=== PATIENT | female | born 1975 | race Caucasian/White ===

== ENCOUNTER 2016-03-11 14:36 | Observation (INO) | payer OTHER ==
[2016-03-11] VITALS (7 sets, daily range): BP systolic 103–155; BP diastolic 65–81; PULSE 72–91; TEMP 36.3–36.7; O2SAT 94–99; Ht 170.2 cm; Wt 85.7 kg
[~2016-03-11] VITALS: Ht 170.2 cm; Wt 85.7 kg
[~2016-03-11 14:36] MED LIST: BSP15 PO; CITA10TA8 PO; HYDR-5688 PO; MYCO250C7 PO; SUMA6KIT SC; TOPI25TA55 PO
[2016-03-11] MEDS ORDERED: MIDAZOLAM HCL 1 MG/ML 2ML VIAL ONE (14:56)
[2016-03-11] MEDS ORDERED: PROPOFOL IV EMULSION 10 MG/ML 20 ML VIAL IV ONE ×2 (14:56→18:01)
[2016-03-11] MEDS ORDERED: FENTANYL CITRATE INJ 50 MCG/1 ML 2 ML VIAL ONE ×3 (14:56→18:39)
[2016-03-11] MEDS ORDERED: LIDOCAINE HCL 2% 2 ML VIAL (20MG/ML) ONE (14:56)
[2016-03-11] MEDS ORDERED: ONDANSETRON INJ 2 MG/ML 2 ML VIAL ONE (14:56)
[2016-03-11] MEDS ORDERED: ACET-1256 PO (14:57)
[2016-03-11] MEDS ORDERED: IBUP-1050 PO (14:57)
[2016-03-11] MEDS ORDERED: LACTATED RINGER'S 1000ML 1,000 ML IV SCH (15:03)
--- NOTE | 2016-03-11 15:07 | History & Physical Bridge Note ---
H&P Re-Evaluation Bridge Note: I have examined the patient, reviewed the History & Physical and in the interval since the performance of the History & Physical I have noted the following changes of clinical significance: plan for removal of her left tube and ovary.
[2016-03-11 15:30] LABS: BASO % 0.5 %; BASO ABS # 0.03 K/uL (0-0.2); EOS % 1.3 %; HEMATOCRIT 37.4 % (37-47); IG% 0.2 %; LYMPH % 20.2 %; LYMPH ABS # 1.23 K/uL (1.2-3.4); MEAN CELL VOLUME 90.1 fL (80-100); MEAN CORPUSCULAR HEMOGLOBIN 30.4 pg (25-34); MEAN PLATELET VOLUME 10.1 fL (7.4-10.4); MONO % 7.1 %; NEUT % 70.7 %; PLATELET COUNT 190 K/uL (130-400); RED BLOOD COUNT 4.15 M/uL (4.2-5.4); WHITE BLOOD COUNT 6.08 K/uL (4.8-10.8)
[2016-03-11] MEDS ORDERED: IV FLUIDS COMPLETED PRN ×2 (15:30→20:15)
[2016-03-11 15:38] LABS: COMPLETE YES; MEAN CORPUSCULAR HGB CONC 33.7 g/dl (32-36)
[2016-03-11] MEDS ORDERED: SUCCINYLCHOLINE CHLORIDE 20 MG/ML 10 ML VIAL IV ONE (18:01)
[2016-03-11] MEDS ORDERED: PHENYLEPHRINE 100MCG/ML 5ML SYR IV PRN (18:45)
[2016-03-11] MEDS ORDERED: EpHEDrine SULFATE INJ 50 MG/ML AMP IV PRN (18:45)
[2016-03-11] MEDS ORDERED: ATROPINE SULFATE 0.1 MG/ML 5ML SYR IV PRN (18:45)
[2016-03-11] MEDS ORDERED: ONDANSETRON INJ 2 MG/ML 2 ML VIAL IV PRN ×2 (18:45→19:45)
[2016-03-11] MEDS ORDERED: BUPIVACAINE 0.5 % 5 MG/1 ML MPF 30ML VIAL INJ ONE (19:21)
[2016-03-11] MEDS ORDERED: GELATIN SPONGE 12-7MM TOP ONE (19:22)
[2016-03-11] MEDS: HYDROmorphone INJ 2 MG/ML SYR/VIAL IV PRN ×4 (19:36→19:58)
[2016-03-11] MEDS ORDERED: MEPERIDINE HCL 25 MG/ML CARP ONE (19:37)
[2016-03-11] MEDS ORDERED: NURSING VERBAL MED ORDER ONE (19:37)
--- NOTE | 2016-03-11 19:40 | [facility] Post Operative Brief Note ---
Immediate Operative Summary Operative Date Mar 11, 2016. Pre-Operative Diagnosis Left ovarian mass, suspected torsion of the left ovary. Post-Operative Diagnosis Same Procedure(s) Performed Diagnostic Laparoscopy, Exploratory laparotomy and Left salpingo-oophorectomy Surgeon Dr Davis Aircraft Layout Worker Surgeon(s) Dr. Ramirez Estimated Blood Loss 25cc Findings right tube and ovary normal. utx surgically absent. left ovary enlarged and appeared necrotic. it was encased on bowel and adhesed to the left side of the vaginal cuff and the left pelvic sidewall. appendix visualized and normal. Fluids (cc crystalloids) 1000cc, 200 cc urine out Specimens a. left ovary and tube Drains jean baptiste Anesthesia gett Complication(s) None Disposition Recovery Room / PACU
[2016-03-11] MEDS ORDERED: MEPERIDINE HCL 50 MG/ML CARP IV PRN (19:45)
[2016-03-11] MEDS ORDERED: ACETAMINOPHEN 325 MG TAB PO PRN (19:45)
[2016-03-11] MEDS ORDERED: KETOROLAC TROMETHAMINE 30 MG/ML VIAL IV PRN (19:45)
[2016-03-11] MEDS ORDERED: KETOROLAC TROMETHAMINE 30 MG/ML VIAL ONE (20:00)
[2016-03-11] MEDS ORDERED: CEFAZOLIN 2000 MG/60 ML D5W 60 ML IV ONE (20:45)
[2016-03-11] MEDS: OXYCODONE/ACETAMINOPHEN 5-325 TAB PO PRN (22:40)
[2016-03-11] MEDS: IBUPROFEN 600 MG TAB PO PRN (22:40)
[2016-03-11] MEDS: LACTATED RINGER'S 1000ML 1,000 ML IV SCH (22:42)
--- NOTE | 2016-03-12 00:40 | OPERATIVE REPORT ---
DATE OF OPERATION: 03/11/2016 PREOPERATIVE DIAGNOSIS: Left ovarian mass with suspected torsion of the left ovary. POSTOPERATIVE DIAGNOSIS: Same with adhesions of the left adnexa to the large bowel and left pelvic sidewall. PROCEDURE PERFORMED: 1. Diagnostic laparoscopy. 2. Conversion to exploratory laparotomy. 3. Left salpingo-oophorectomy. SURGEON: Dr. Davis. ASSIST: Dr. Ramirez. ESTIMATED BLOOD LOSS: 25 mL FLUIDS: 1000 mL of IV fluids. URINE OUTPUT: 200 mL of clear yellow urine draining from the bladder at the end of the procedure. INDICATIONS: The patient is a 40-year-old white female with a history of total laparoscopic hysterectomy about 2 years ago. About 2 weeks ago, she was in the Emergency Department with pain, was found to have a hemorrhagic [address] scan, was evaluated, treated, improved with oral pain meds. She presented to the office yesterday for an ultrasound noting that her pain had not completely resolved and in fact it had been getting worse over the past 24 hours or so. Ultrasound at that time showed right ovarian mass that was 6 cm, there was essentially no ovarian tissue left. There was arterial blood flow to the ovary but no venous return. It was suspected that there was ovarian torsion and she was sent to the operating room. FINDINGS: Right tube and ovary were normal. The uterus was surgically absent. The left ovary was enlarged, approximately 5-6 cm and appeared necrotic. It was encased in bowel and adhesed to the left side of the vaginal cuff and the left pelvic sidewall. The appendix was visualized and found to be normal. COMPLICATIONS: None. DRAINS: Terry. DISPOSITION: To recovery room in stable condition. ANESTHESIA: General per endotracheal tube. PROCEDURE IN DETAIL: The patient was taken to the operating room where she was identified verbally and by bracelet. She was transferred to the operating table where general anesthetic was induced without difficulty. She was then placed in a dorsal lithotomy position in [facility]. Her hands were carefully tucked and draped at her side. Her chest was tucked and protected. She was prepped and draped in normal sterile fashion. Timeout was held identifying correct patient, procedure and positioning. A Terry catheter was placed sterilely and a sterile sponge stick was placed into the vaginal cuff. Gloves were then changed. Attention was then turned to the abdomen where an infraumbilical incision was made with a knife. The Veress needle was placed through this, opening pressure 3 mmHg. Abdomen insufflated with 3 liters of carbon dioxide gas. 11 mm trocar with the laparoscope in it was introduced into the abdomen under direct visualization. Then, under direct visualization, a 5 mm trocar was placed in the right and left lower quadrants. The right ovary was evaluated and found to be normal. The tube had likely been previously removed with the laparoscopy. The left ovary was enlarged and appeared necrotic. It was encased in large bowel and was adherent to the vaginal cuff to the left pelvic sidewall. I was able to gently tease off some of the bowel gently with a blunt probe, but given these findings, my problems with visualization, I decided to open the patient. The trocars were removed, a deep stitch was placed of 0 Vicryl in the 11 mm trocar umbilical site, and the incisions were closed with 4-0 Vicryl in a subcuticular fashion. Attention was then turned and a Pfannenstiel skin incision was made with the knife, this was taken down to the underlying layer of fascia with the knife and Bovie electrocautery. Bleeding was attended to with Bovie electrocautery. The fascia was incised with cautery and taken out laterally with scissors. The superior edge of the fascial incision was grasped, elevated, and the underlying layer of rectus muscle was taken off bluntly and with scissors, bleeding was attended to with Bovie electrocautery. In a similar fashion, the inferior edge of the fascial incision was grasped, elevated, and the underlying layer of rectus muscle was taken off bluntly and with scissors. The muscles were bluntly and sharply in the midline. The peritoneum was entered bluntly, taken superiorly and inferiorly, and the incision was stretched. The patient was placed in Trendelenburg and the bowels were packed away with moist and laparotomy sponges. When we were able to visualize the ovary, the booster pump operator's hand was placed into the pelvis, and gently with blunt dissection, the ovary was able to be removed from the bowel, the vaginal cuff and the pelvic sidewall. It was grasped with a Sandstone clamp and essentially disintegrated in our hands. We were left with basically an ovarian stump to the IP ligament. The IP ligament was found to likely be free from the ureter and it was doubly clamped, cut, and suture ligated x2. The pelvis was then copiously irrigated with warm normal saline. There was some oozing at the site of the cuff and the left pelvic sidewall, and some Gelfoam was placed over this. Hemostasis was noted to be good and the procedure was terminated. The bowel was then packed. The patient was taken out of Trendelenburg. The fascia was reapproximated with 0 Vicryl meeting in the midline. Subcuticular tissue was irrigated and attended to with Bovie electrocautery. When hemostasis was assured, the skin was closed with subcuticular stitch of 4-0 Vicryl. The laparoscopic incisions were then infiltrated with 0.5% Marcaine. The instruments were removed from the vagina and the procedure was terminated. All sponge, lap and needle counts were correct x2. The patient tolerated the procedure well and was taken to the recovery room in stable condition. I attest to the content of the Intraoperative Record and any orders documented therein. Any exceptio ns are noted below.
--- NOTE | 2016-03-12 01:28 | Anesthesiology Progress Note ---
Anesthesia Post Op Note Date & Time Mar 12, 2016 at 01:28 Vital Signs Pain Intensity: 5.0 Vital Signs Past 12 Hours Date Time Temp Pulse Resp B/P Pulse Ox O2 Delivery O2 Flow Rate FiO2 03/11/16 23:25 Room Air 03/11/16 23:25 36.7 72 16 110/65 96 Room Air 03/11/16 22:30 36.5 74 18 103/67 97 Room Air 03/11/16 21:30 36.3 75 16 106/68 94 Room Air 03/11/16 21:00 36.4 77 16 107/70 99 Room Air 03/11/16 20:48 36.7 79 16 108/69 99 Nasal Cannula 2.0 03/11/16 20:30 36.7 79 16 108/69 99 Nasal Cannula 2.0 03/11/16 20:30 99 Nasal Cannula 2.0 03/11/16 20:30 99 Nasal Cannula 2.0 03/11/16 20:05 37.4 64 12 123/69 100 Nasal Cannula 2 03/11/16 19:55 71 12 112/75 99 Nasal Cannula 2 03/11/16 19:45 68 14 117/81 100 Nasal Cannula 2 03/11/16 19:36 36.5 88 16 128/76 95 Nasal Cannula 2 03/11/16 14:45 36.5 91 22 155/81 96 Room Air Notes Mental Status: alert / awake / arousable, participated in evaluation Pt Amnestic to Procedure: Yes Nausea / Vomiting: adequately controlled Pain: adequately controlled Airway Patency, RR, SpO2: stable & adequate BP & HR: stable & adequate Hydration State: stable & adequate Anesthetic Complications: no major complications apparent
[2016-03-12 03:17] VITALS: BP 113/75; PULSE 65; TEMP 36.7; O2SAT 99
[2016-03-12] MEDS: LACTATED RINGER'S 1000ML 1,000 ML IV SCH ×2 (03:17→11:21)
[2016-03-12] MEDS: OXYCODONE/ACETAMINOPHEN 5-325 TAB PO PRN ×3 (03:24→14:05)
--- NOTE | 2016-03-12 06:25 | Medical Student: [facility] ---
Med Student ELECTRIC OPERATOR Progress Nt Date of Service Mar 12, 2016. The patient is a 40-year-old white female with a significant PMH of laparoscopic hysterectomy and myasthenia gravis who was sent to [facility] on 03/11/16 for surgery when it was suspected that she had left ovarian torsion. She presented to the ED on 02/15/16 with severe 10/10 pain and nausea/ vomiting, and was determined to have a hemorrhagic cyst. She continued to have pain over the next few weeks and ultrasound on 03/10/16 showed arterial blood flow but no venous flow. In the OR diagnostic laparoscopy revealed that there was extensive adhesion to the vaginal cuff and bowel and so laparotomy was performed to remove the ovary. There were no complications. Blood loss was 25 cc. This morning patient states that she is having pain but it is much less severe than last night after surgery. She did not have any complications or issues with anesthesia. She was able to get some sleep. Terry catheter was removed earlier this morning and patient was able to ambulate and void without issue. She has not had anything to eat except for 'a few cheerios' and has not had a bowel movement, but is passing gas. Patient denies fevers, sweats, chills, palpitations, nausea, vomiting. She denies calf pain or swelling. Subjective conversation w/ patient, physical exam Ambulation: ambulating normally Voiding: no voiding problems Passing Gas: Yes Review of Systems Constitutional: No fever Cardiac: No chest pain Abdomen: + pain, No nausea, No vomiting Female : No dysuria Objective Vital Signs Date Time Temp Pulse Resp B/P Pulse Ox O2 Delivery O2 Flow Rate FiO2 03/12/16 03:17 36.7 65 16 113/75 99 Room Air 03/11/16 23:25 Room Air 03/11/16 23:25 36.7 72 16 110/65 96 Room Air 03/11/16 22:30 36.5 74 18 103/67 97 Room Air 03/11/16 21:30 36.3 75 16 106/68 94 Room Air 03/11/16 21:00 36.4 77 16 107/70 99 Room Air 03/11/16 20:48 36.7 79 16 108/69 99 Nasal Cannula 2.0 03/11/16 20:30 36.7 79 16 108/69 99 Nasal Cannula 2.0 03/11/16 20:30 99 Nasal Cannula 2.0 03/11/16 20:30 99 Nasal Cannula 2.0 03/11/16 20:05 37.4 64 12 123/69 100 Nasal Cannula 2 03/11/16 19:55 71 12 112/75 99 Nasal Cannula 2 03/11/16 19:45 68 14 117/81 100 Nasal Cannula 2 03/11/16 19:36 36.5 88 16 128/76 95 Nasal Cannula 2 03/11/16 14:45 36.5 91 22 155/81 96 Room Air Physical Exam General Appearance: WELL-APPEARING, WD/WN Respiratory/Chest: chest non-tender, lungs clear, normal breath sounds Cardiovascular: regular rate, rhythm Extremities: normal range of motion, non-tender, normal inspection, no pedal edema, no calf tenderness Uterus is surgically absent. Incision sites were not visualized but there is no erythema or swelling around dressings. Laboratory Results Last 24 Hours Test 03/11/16 15:15 03/12/16 04:44 White Blood Count 6.08 K/uL Red Blood Count 4.15 M/uL Hemoglobin 12.6 g/dL Hematocrit 37.4 % Mean Corpuscular Volume 90.1 fL Mean Corpuscular Hemoglobin 30.4 pg Mean Corpuscular Hemoglobin Concent 33.7 g/dl Platelet Count 190 K/uL Mean Platelet Volume 10.1 fL Neutrophils (%) (Auto) 70.7 % Lymphocytes (%) (Auto) 20.2 % Monocytes (%) (Auto) 7.1 % Eosinophils (%) (Auto) 1.3 % Basophils (%) (Auto) 0.5 % Neutrophils # (Auto) 4.30 K/uL Lymphocytes # (Auto) 1.23 K/uL Monocytes # (Auto) 0.43 K/uL Eosinophils # (Auto) 0.08 K/uL Basophils # (Auto) 0.03 K/uL RDW Standard Deviation 41.7 fL RDW Coefficient of Variation 12.8 % Immature Granulocyte % (Auto) 0.2 % Immature Granulocyte # (Auto) 0.01 K/uL Medications Medications (Trade) Dose Ordered Sig/Bert Route Start Time Stop Time Status Last Admin Dose Admin Lactated Ringer's (Lr 1000ml) 1,000 ml @ 125 mls/hr Q8H IV 03/11/16 15:03 03/11/16 22:24 DC 03/11/16 21:33 125 MLS/HR Hydromorphone HCl (Dilaudid Inj) 0.5 mg Q5M PRN IV 03/11/16 18:45 03/11/16 23:45 DC 03/11/16 19:58 0.5 MG Bupivacaine HCl (Marcaine 0.5% MPF Inj) 6 ml ONE ONCE INJ 03/11/16 19:21 03/11/16 19:22 DC 03/11/16 19:21 6 ML Gelatin (Surgifoam Sponge 12-7MM (SMALL)) 1 ea ONE ONCE TOP 03/11/16 19:22 03/11/16 19:23 DC 03/11/16 19:22 1 EA Meperidine HCl 25 mg 25 mg STK-MED ONCE .ROUTE 03/11/16 19:37 03/11/16 19:38 DC 03/11/16 19:39 25 MG Lactated Ringer's (Lr 1000ml) 1,000 ml @ 125 mls/hr Q8H IV 03/11/16 19:40 04/10/16 19:39 03/12/16 03:17 125 MLS/HR Oxycodone/ Acetaminophen (Percocet 5-325MG Tab) 2 tab Q4H PRN PO 03/11/16 19:45 03/25/16 19:44 03/12/16 03:24 2 TAB Ibuprofen (Motrin Tab) 600 mg Q6 PRN PO 03/11/16 19:45 04/10/16 19:44 03/11/16 22:40 600 MG Ketorolac Tromethamine 30 mg 30 mg STK-MED ONCE .ROUTE 03/11/16 20:00 03/11/16 20:01 DC 03/11/16 20:01 30 MG Cefazolin Sodium (Ancef 2000mg/60 ml D5W) 60 ml @ 100 mls/hr TODAY@2044 ONCE IV 03/11/16 20:45 03/11/16 21:29 DC 03/11/16 21:33 100 MLS/HR Assessment and Plan Post-Op Day Number: 1 Continue Routine Care: The patient is a 40-year-old white female with a significant PMH of laparoscopic hysterectomy and myasthenia gravis who underwent surgery on 03/11/16 at [facility] for left ovarian torsion. Continue routine care. Encourage ambulation as she is at risk of VTE post-op. Encourage fluids. Pain management as needed.
[2016-03-12 07:15] VITALS: BP 113/73; PULSE 64; TEMP 36.7; O2SAT 99
--- NOTE | 2016-03-12 07:36 | OB/GYN Progress Note ---
AIR MOVING TECHNICIAN Progress Note Date of Service Mar 12, 2016. Subjective conversation w/ patient, physical exam, lab review Ambulation: ambulating normally Voiding: no voiding problems (jean baptiste recently removed and has voided.) Passing Gas: Yes Diet Tolerance: Clear Liquids Pain: controlled with oral pain meds Notes: Did well overnight. no n/v. Pain better controlled. Explained the surgery and findings to the patient. Objective Vital Signs Date Time Temp Pulse Resp B/P Pulse Ox O2 Delivery O2 Flow Rate FiO2 03/12/16 07:15 36.7 64 16 113/73 99 Room Air 03/12/16 03:17 36.7 65 16 113/75 99 Room Air 03/11/16 23:25 Room Air 03/11/16 23:25 36.7 72 16 110/65 96 Room Air 03/11/16 22:30 36.5 74 18 103/67 97 Room Air 03/11/16 21:30 36.3 75 16 106/68 94 Room Air 03/11/16 21:00 36.4 77 16 107/70 99 Room Air 03/11/16 20:48 36.7 79 16 108/69 99 Nasal Cannula 2.0 03/11/16 20:30 36.7 79 16 108/69 99 Nasal Cannula 2.0 03/11/16 20:30 99 Nasal Cannula 2.0 03/11/16 20:30 99 Nasal Cannula 2.0 03/11/16 20:05 37.4 64 12 123/69 100 Nasal Cannula 2 03/11/16 19:55 71 12 112/75 99 Nasal Cannula 2 03/11/16 19:45 68 14 117/81 100 Nasal Cannula 2 03/11/16 19:36 36.5 88 16 128/76 95 Nasal Cannula 2 03/11/16 14:45 36.5 91 22 155/81 96 Room Air Physical Exam General Appearance: WELL-APPEARING, WD/WN, NO APPARENT DISTRESS Abdomen: normal bowel sounds, non tender, soft Incision Description: Clean, Dry & Intact Extremities: non-tender, normal inspection, no pedal edema Laboratory Results Last 24 Hours Test 03/11/16 15:15 03/12/16 04:44 White Blood Count 6.08 K/uL Red Blood Count 4.15 M/uL Hemoglobin 12.6 g/dL Hematocrit 37.4 % Mean Corpuscular Volume 90.1 fL Mean Corpuscular Hemoglobin 30.4 pg Mean Corpuscular Hemoglobin Concent 33.7 g/dl Platelet Count 190 K/uL Mean Platelet Volume 10.1 fL Neutrophils (%) (Auto) 70.7 % Lymphocytes (%) (Auto) 20.2 % Monocytes (%) (Auto) 7.1 % Eosinophils (%) (Auto) 1.3 % Basophils (%) (Auto) 0.5 % Neutrophils # (Auto) 4.30 K/uL Lymphocytes # (Auto) 1.23 K/uL Monocytes # (Auto) 0.43 K/uL Eosinophils # (Auto) 0.08 K/uL Basophils # (Auto) 0.03 K/uL RDW Standard Deviation 41.7 fL RDW Coefficient of Variation 12.8 % Immature Granulocyte % (Auto) 0.2 % Immature Granulocyte # (Auto) 0.01 K/uL Assessment and Plan Post-Op Day Number: 1 Continue Routine Care: Doing well. Plan d/c after lunch today when criteria met. d/c instructions reviewed.
[2016-03-12] MEDS ORDERED: OXYC-57 PO (07:37)
--- NOTE | 2016-03-12 07:40 | Discharge Instructions ---
Discharge Instructions Admission Reason for Admission: Torsion Left Ovary Discharge Discharge Diagnosis / Problem: exploratory laparotomy with removal of left tube and ovary. Discharge Goals Goal(s): Specific Goal(s) Activity Recommendations Activity Limitations: per Instructions/Follow-up section . Instructions / Follow-Up Instructions / Follow-Up ACTIVITY RECOMMENDATIONS: Activity: * During the first week at home, your activity should be similar to that done at the hospital prior to discharge. Your primary activity is in-house walking interspersed with rest periods. Preparing lunch for yourself is acceptable. You may go up and down stairs. Try to stay up progressively longer periods of time to help regain your strength more quickly. * During the second week at home, activities should include some meal preparation, walking to strengthen abdominal muscles and riding in a car. You may drive a car and make brief shopping trips at the end of the second week at home. * Lifting should not exceed 15-20 pounds during the first month after surgery. * Sexual intercourse can usually be resumed about 6 weeks after surgery depending on findings at your post-operative examinations. Bathing: * Showers or baths are permissible. Sitting in four to six inches of hot water (sitz bath) is often comforting after vaginal surgery and is permitted at any time. A sitz bath at bedtime can also assist in a better night's sleep. SPECIAL CARE INSTRUCTIONS: The major discomforts related to surgery have now passed and progressive improvement will occur. The tight uncomfortable feeling in the abdominal, pelvic and back area will gradually fade away. Fatigue may take the longest to disappear; your energy level may take several weeks to return to normal. At times you may become frustrated or impatient over not feeling as well or doing as much as you'd like , but this is a normal reaction to surgery and will pass with time. Vaginal Discharge: * Odorous, blood-tinged or brownish discharge may be present for one to three weeks after surgery. * Pads should be used and not tampons. * Stitches may be passed vaginally. * Bleeding may be somewhat increased approximately two weeks after surgery, which is related to the stitches dissolving. * If bleeding becomes free flowing, notify our office at . Bowel Care: * Constipation after surgery is very common. Foods that promote bowel activity (bran, fruit, prune juice) should be included in your diet. * A capsule, DIALOSE-PLUS, can be purchased without a prescription and can be taken daily (one or two capsules) to assist in promoting bowel activity. * If you have had vaginal surgery involving your rectum, we will discuss this when discharged from the hospital. Catheter or "CYSTO-CATH": * Approximately 80% of "bladder repair" patients will require a catheter at home until the swelling recedes. * Some patients require days to weeks before adequate bladder emptying will resume. * In general, after each time you urinate, un-clamp the catheter again. Measure the amount in the bag. When this is consistently below 100cc, call the office to make an appointment to have the catheter removed. Temperature: * Any fever above 100.4 degrees F should be reported to our office at [phone]. FOLLOW-UP: Post-Operative Appointments: * Individual instructions will have been given about the timing of your first examination, but this is usually at the end of the second week home. * You will need to call the office at soon after discharge to make the appointment for your post-op check-up if it has not already been scheduled-- in 4 weeks. * Additional information regarding activity, sexual intercourse and when to return to work will be given at this appointment. WE WISH YOU A SPEEDY RECOVERY! Current Hospital Diet Patient's current hospital diet: Regular Diet Discharge Diet Recommended Diet: Regular Diet Procedures Procedures Performed: Diagnostic Laparoscopy, Exploratory Laparotomy, Open Left Salpingo-Oophorectomy Pending Studies Studies pending at discharge: no Medical Emergencies . Who to Call and When: Medical Emergencies: If at any time you feel your situation is an emergency, please call 911 immediately. . Non-Emergent Contact Non-Emergency issues call your: [place] Line Attendant . . "Provider Documentation" section prepared by Elizabeth Davis. VTE Core Measure Inpt VTE Proph given/why not?: Treatment not indicated [place] Drug Monitoring Program Search Results: patient reviewed within database
[2016-03-12] MEDS: IBUPROFEN 600 MG TAB PO PRN ×2 (08:10→14:04)
[2016-03-12 08:41] LABS: BASO % 0.3 %; BASO ABS # 0.02 K/uL (0-0.2); COMPLETE YES; EOS % 0.6 %; HEMATOCRIT 33.9 % (37-47); IG% 0.1 %; LYMPH % 13.5 %; LYMPH ABS # 1.05 K/uL (1.2-3.4); MEAN CELL VOLUME 90.4 fL (80-100); MEAN CORPUSCULAR HEMOGLOBIN 30.4 pg (25-34); MEAN CORPUSCULAR HGB CONC 33.6 g/dl (32-36); MEAN PLATELET VOLUME 9.9 fL (7.4-10.4); MONO % 6.2 %; NEUT % 79.3 %; PLATELET COUNT 155 K/uL (130-400); RED BLOOD COUNT 3.75 M/uL (4.2-5.4); WHITE BLOOD COUNT 7.76 K/uL (4.8-10.8)
--- NOTE | 2016-03-12 08:42 | Anesthesiology Progress Note ---
Anesthesia Post Op Note Date & Time Mar 12, 2016 at 08:41 Vital Signs Vital Signs Past 12 Hours Date Time Temp Pulse Resp B/P Pulse Ox O2 Delivery O2 Flow Rate FiO2 03/12/16 07:15 36.7 64 16 113/73 99 Room Air 03/12/16 03:17 36.7 65 16 113/75 99 Room Air 03/11/16 23:25 Room Air 03/11/16 23:25 36.7 72 16 110/65 96 Room Air 03/11/16 22:30 36.5 74 18 103/67 97 Room Air 03/11/16 21:30 36.3 75 16 106/68 94 Room Air 03/11/16 21:00 36.4 77 16 107/70 99 Room Air 03/11/16 20:48 36.7 79 16 108/69 99 Nasal Cannula 2.0 Notes Mental Status: alert / awake / arousable, participated in evaluation Pt Amnestic to Procedure: Yes Nausea / Vomiting: adequately controlled Pain: adequately controlled Airway Patency, RR, SpO2: stable & adequate BP & HR: stable & adequate Hydration State: stable & adequate Anesthetic Complications: no major complications apparent
[2016-03-12] MEDS ORDERED: CITALOPRAM 20 MG TAB PO SCH (09:00)
[2016-03-12] MEDS ORDERED: TOPIRAMATE 25 MG TAB PO SCH (09:00)
[2016-03-12] MEDS ORDERED: MYCOPHENOLATE MOFETIL 250 MG CAP (CELLCEPT) PO SCH (09:00)
[2016-03-12] MEDS ORDERED: SUMATRIPTAN SUCCINATE 6 MG/0.5 ML VIAL SQ PRN (15:15)
[2016-03-12 15:30] VITALS: O2SAT 96
[2016-03-12 15:37] VITALS: BP 126/76; PULSE 66; TEMP 36.7; O2SAT 96
[2016-03-12 16:25] VITALS: BP 126/76; PULSE 66; TEMP 36.7; O2SAT 96
--- NOTE | 2016-03-18 15:52 | DISCHARGE SUMMARY ---
ADMIT DIAGNOSES: Suspected torsion of the left ovary. HISTORY OF PRESENT ILLNESS: This patient is a 42-year-old white female who is known to Dr. Hayes from a [facility] done in 2013 for menorrhagia. She had not had [employer] care since 2013 and presented to the ER on 02/15/2016. The ER visit was prompted by severe pelvic pain, left-sided, 10/10 with vomiting. Her evaluation resulted in pain meds with finding of a suspected left ovarian hemorrhagic cyst with small hemoperitoneum. On her followup on 03/04/2016 she continued to have persistent pain and ultrasound was planned and done the day before admission. That ultrasound showed an enlarged left ovary that was edematous with very little normal ovarian tissue in about 6 cm. There was arterial flow, but no venous flow could be seen. The patient was counseled to return to the ER if pain was severe, but instead came for follow-up appointment on the day of admission. She continues to feel unwell. The pain waxes and wanes since 03/06/2016 but she feels the last 3 days that has worsened. She notes no appetite. She feels pressure or her bladder and in her pelvis. The pain is on her left. The findings of the ultrasound were discussed, the need for LSO and the patient desires intervention as soon as possible because of the pain. She also reports on and off fevers. Her last white blood cell count in the ER 12.9 and was normal. For the rest of the patient's detailed history and physical, please see her dictated history and physical. ASSESSMENT: This is a 40-year-old white female with suspected torsed left ovary. The options were discussed with the patient and she desires to move toward a more emergent surgery. HOSPITAL COURSE: I was the physician salesperson recreational vehicles. Dr. Hayes spoke to me regarding this patient and the plan. She presented to same day surgery where she was prepped for surgery. Consent form was reviewed with the patient and was signed. We would start with a laparoscopic approach to hopefully be able to remove the ovary that way, but she was consented for possible exploratory laparotomy. The patient underwent a diagnostic laparoscopy where it was found that the left ovary was edematous and adhesed to the left pelvic sidewall and vaginal cuff as well as having large bowel adhesed over it and so the procedure was converted to exploratory laparotomy and she then she underwent a left salpingo-oophorectomy. The right ovary was normal. The right tube was surgically absent. The left ovary was enlarged and appeared necrotic. It was encased in bowel and adhesed to the left side of the vaginal cuff and pelvic sidewall. The appendix was visualized and was normal. Estimated blood loss 25 mL. The patient's postoperative course was uncomplicated. She tolerated a regular diet, ambulated, her Terry was removed and she voided. She passed gas. Her pain was well controlled on oral pain medications. She was discharged home after lunch on postoperative day #1 with Percocet for pain and to follow up in approximately 4 weeks for postoperative visit. Results will be shared with the patient upon return of pathology. MIMI
== END 2016-03-12 16:45 | disposition home or self-care (01) ==
LOC: ENRESERVDT → ENRESERVTM → C.ACU 14:36 → C.MS4N 19:43
PROVIDERS: ADMIT Obstetrics & Gynecology; ATTEND Obstetrics & Gynecology
DX: N83.53 Torsion of ovary, ovarian pedicle and fallopian tube (principal); N73.6 Female pelvic peritoneal adhesions (postinfective); Z53.31 Laparoscopic surgical procedure converted to open procedure; K21.9 Gastro-esophageal reflux disease without esophagitis; N92.1 Excessive and frequent menstruation with irregular cycle; L91.8 Other hypertrophic disorders of the skin

== ENCOUNTER → 2016-04-21 | Outpatient (CLI) | payer OTHER ==
[~2016-04-21] MED LIST changes: -HYDR-5688 PO; +IBUP-1050 PO; +OXYC-57 PO
[2016-04-21 15:50] LABS: URINE APPEARANCE CLEAR (CLEAR); URINE BILIRUBIN NEG (NEG); URINE COLOR YELLOW; URINE NITRITE NEG (NEG); URINE PH 7.5 (4.5-7.5); URINE SPECIFIC GRAVITY 1.005 (1.000-1.030); UROBILINOGEN NEG (NEG)
[2016-04-21 15:51] LABS: MANUAL MICROSCOPIC REQUIRED? NO; REVIEW REQ? NO
== END | disposition home or self-care (01) ==
LOC: C.LABSPEC 10:28
PROVIDERS: ATTEND Obstetrics & Gynecology
DX: R35.0 Frequency of micturition (principal)

== ENCOUNTER 2017-04-13 08:34 | Emergency (ER) | payer OTHER ==
[~2017-04-13] VITALS: Ht 171.5 cm; Wt 93.2 kg
[~2017-04-13 08:34] MED LIST changes: -OXYC-57 PO
[2017-04-13 08:40] VITALS: TEMP 36.7; Ht 171.5 cm; Wt 93.2 kg
[2017-04-13] MEDS ORDERED: CETI10TA84 PO (09:56)
[2017-04-13] MEDS ORDERED: PROCHLORPERAZINE 5 MG/ML 2 ML VIAL IV STA (09:59)
[2017-04-13] MEDS ORDERED: SODIUM CHLORIDE 0.9% 1000ML 1,000 ML IV STA (09:59)
[2017-04-13] MEDS ORDERED: KETOROLAC TROMETHAMINE 30 MG/ML VIAL IV STA (09:59)
[2017-04-13] MEDS ORDERED: PROM25TA9 PO (10:21)
[2017-04-13] MEDS ORDERED: SUMA100T16 PO (10:21)
[2017-04-13] MEDS ORDERED: MAGN400T6 PO (10:21)
[2017-04-13] MEDS ORDERED: CITA20TA9 PO (10:21)
[2017-04-13] MEDS ORDERED: RIBO1TAB4 PO (10:21)
[2017-04-13] MEDS ORDERED: PYRI60TA2 PO (10:21)
[2017-04-13] MEDS ORDERED: MONT1TAB3 PO (10:21)
[2017-04-13] MEDS ORDERED: KETO0.0216 OP (10:21)
[2017-04-13] MEDS ORDERED: ALBUAER OR (10:21)
[2017-04-13 11:12] LABS: INFLUENZA A PCR Neg for Influ A (NEG); INFLUENZA B PCR Neg for Influ B (NEG)
[2017-04-13 11:15] VITALS: PULSE 84; O2SAT 99
[2017-04-13 11:19] LABS: BASO % 0.3 %; BASO ABS # 0.02 K/uL (0-0.2); EOS % 1.3 %; EOS ABS # 0.08 K/uL (0-0.5); HEMATOCRIT 38.6 % (37-47); HEMOGLOBIN 12.9 g/dL (12.0-16.0); IG# 0.01 K/uL (0.00-0.02); LYMPH % 19.1 %; LYMPH ABS # 1.17 K/uL (1.2-3.4); MEAN CELL VOLUME 91.9 fL (80-100); MEAN CORPUSCULAR HEMOGLOBIN 30.7 pg (25-34); MEAN CORPUSCULAR HGB CONC 33.4 g/dl (32-36); MONO % 5.7 %; MONO ABS # 0.35 K/uL (0.11-0.59); NEUT % 73.4 %; NEUT ABS # 4.51 K/uL (1.4-6.5); PLATELET COUNT 182 K/uL (130-400); RED CELL DISTRIBUTION WIDTH CV 12.7 % (11.5-14.5); RED CELL DISTRIBUTION WIDTH SD 42.6 fL (36.4-46.3); WHITE BLOOD COUNT 6.14 K/uL (4.8-10.8)
--- NOTE | 2017-04-13 11:30 | EMERGENCY ROOM VISIT NOTE ---
History Report prepared by Adam: Mikhail Mendoza Under the Supervision of: Dr. Mable Espinosa D.O. First contact with patient: 09:32 Chief Complaint: HEADACHE Stated Complaint: EXTREME HEADACHE, NOSE BLEED, NAUSEA AND VOMITING History of Present Illness The patient is a 42 year old female who presents to the Emergency Room with complaints of a worsening headache that began a couple of hours ago when the patient woke up. She rates her pain a 9/10 in severity. She has a past medical history of migraines, myasthenia gravis, hysterectomy with unilateral oophorectomy, and asthma. When the patient woke this morning, she began to experience one of her typical migraines with nausea. However about an hour ago, her nose began to bleed from the right side which has never happened to the patient before. Once her nose bleed started, her headache worsened significantly. She then began to experience chills, diaphoresis, and vomiting. She was able to stop her nose bleed about 20 minutes later, but then had another one 10 minutes later. She is also having some visual blurring which she states has not happened to her in a long time. She notes that for the past two weeks she has been having some trouble with chills and diaphoresis secondary to her asthma. She also has been having some diarrhea for the past several weeks. She states that she is normally able to control her migraines at home with Imitrex. She denies any fevers, chest pain, or shortness of breath. She denies any recent medication changes. Source of History: patient Onset: a couple of hours ago Position: head Symptom Intensity: 9/10 Quality: ache Timing: worsening Associated Symptoms: + chills, + diaphoresis, + vomiting, No fevers, No chest pain, No SOB Note: She experienced two episodes of epistaxis. She is having some visual blurring. Review of Systems See HPI for pertinent positives & negatives. A total of 10 systems reviewed and were otherwise negative. Past Medical & Surgical Medical Problems: (1) Left tubo-ovarian mass (2) Torsion of left ovary and ovarian pedicle Surgical Problems: (1) H/O: hysterectomy (2) S/P tubal ligation Family History Cancer Social History Smoking Status: Never Smoker Alcohol Use: occasionally Marital Status: Housing Status: lives with family Occupation Status: employed Current/Historical Medications Scheduled Albuterol Sulfate (Proventil Hfa), 2 PUFFS OR Q4 Buspirone HCl (Buspirone HCl), 15 MG PO BID Cetirizine (Zyrtec), 10 MG PO DAILY Citalopram Hydrobromide (Celexa), 20 MG PO DAILY Ibuprofen (Advil), 800 MG PO TID Ketotifen Fumarate (Ophth) (Zaditor 0.025% Oph), 1 DROP OP BID Magnesium Oxide (Mag-Ox), 200 MG PO BID Montelukast Sodium (Singulair), 10 MG PO HS Mycophenolate Mofetil (Mycophenolate Mofetil), 250 MG PO BID Pyridostigmine [place] (Mestinon), 60 MG PO TID Riboflavin (Riboflavin), 400 MG PO DAILY Sumatriptan Succinate (Imitrex Statdose), 1 DOSE SC PRN Sumatriptan Succinate (Imitrex), 100 MG PO PRN Scheduled PRN Promethazine Hcl (Phenergan), 25 MG PO Q4H PRN for Nausea Allergies Coded Allergies: Asparagus (Verified Allergy, Unknown, THROAT CLOSES, WHEEZING, 04/13/17) Physical Exam Vital Signs Date Time Temp Pulse Resp B/P (MAP) Pulse Ox O2 Delivery O2 Flow Rate FiO2 04/13/17 12:46 125/77 04/13/17 11:15 84 16 126/80 99 Room Air 04/13/17 10:14 72 04/13/17 08:40 36.7 73 18 141/95 100 Room Air Physical Exam HEENT: Head - normocephalic and atraumatic. Pupils are equal, round, and reactive to light. Extraocular eye muscles are intact and sclera are anicteric. Ears - bilaterally patent canals with noninjected tympanic membranes and no evidence of hemotympanum. Nose - moist nasal mucosa without discharge. There is a small amount of dried blood to the right nares. Mouth - moist buccal mucosa. Oropharynx is nonerythematous and there is no tonsillar exudate or edema noted. Neck: Supple; no JVD, nuchal rigidity, cervical lymphadenopathy. Heart: Regular rate and rhythm. There is a normal S1 and S2 with no murmurs, clicks, or gallops appreciated. Lungs: Clear to auscultation bilaterally with no wheezes, rales, or rhonchi. Abdomen: Soft, completely nontender, nondistended, with good bowel sounds. There are no palpable pulsatile masses or hepatosplenomegaly. There is no guarding, rigidity, or rebound noted. Extremities: No evidence of cyanosis, clubbing, or edema. There are easily palpable peripheral pulses. Neuro:The patient is awake and alert, oriented to day, time, and place. Muscle strength is 5/5 in all 4 extremities. The patient has equal assembler deck and hull strength and equal pedal push and pull. There are no cerebellar signs. Medical Decision & Procedures ER Provider Diagnostic Interpretation: Radiology results as stated below per my review and the radiologist's interpretation: TWO VIEW CHEST CLINICAL HISTORY: Asthma exacerbation. FINDINGS: PA and lateral chest radiographs are correlated with chest CT dated 05/02/2008. The cardiomediastinal silhouette is unremarkable. The lungs and pleural spaces are clear. There is no pneumothorax. The bony thorax appears intact. Surgical anchors are noted in the left humeral head. IMPRESSION: No active disease in the chest. Electronically signed by: Sunday Monsivais M.D. 04/13/2017 1:42 PM Dictated Date/Time: 04/13/2017 1:42 PM Laboratory Results 04/13/17 10:50 Red Blood Count 4.20, Mean Corpuscular Volume 91.9, Mean Corpuscular Hemoglobin 30.7, Mean Corpuscular Hemoglobin Concent 33.4, Mean Platelet Volume 10.0, Neutrophils (%) (Auto) 73.4, Lymphocytes (%) (Auto) 19.1, Monocytes (%) (Auto) 5.7, Eosinophils (%) (Auto) 1.3, Basophils (%) (Auto) 0.3, Neutrophils # (Auto) 4.51, Lymphocytes # (Auto) 1.17, Monocytes # (Auto) 0.35, Eosinophils # (Auto) 0.08, Basophils # (Auto) 0.02 04/13/17 10:50 Test 04/13/17 10:00 04/13/17 10:50 Influenza Type A (RT-PCR) Neg for Influ A (NEG) Influenza Type B (RT-PCR) Neg for Influ B (NEG) White Blood Count 6.14 K/uL (4.8-10.8) Red Blood Count 4.20 M/uL (4.2-5.4) Hemoglobin 12.9 g/dL (12.0-16.0) Hematocrit 38.6 % (37-47) Mean Corpuscular Volume 91.9 fL (80-100) Mean Corpuscular Hemoglobin 30.7 pg (25-34) Mean Corpuscular Hemoglobin Concent 33.4 g/dl (32-36) Platelet Count 182 K/uL (130-400) Mean Platelet Volume 10.0 fL (7.4-10.4) Neutrophils (%) (Auto) 73.4 % Lymphocytes (%) (Auto) 19.1 % Monocytes (%) (Auto) 5.7 % Eosinophils (%) (Auto) 1.3 % Basophils (%) (Auto) 0.3 % Neutrophils # (Auto) 4.51 K/uL (1.4-6.5) Lymphocytes # (Auto) 1.17 K/uL (1.2-3.4) Monocytes # (Auto) 0.35 K/uL (0.11-0.59) Eosinophils # (Auto) 0.08 K/uL (0-0.5) Basophils # (Auto) 0.02 K/uL (0-0.2) RDW Standard Deviation 42.6 fL (36.4-46.3) RDW Coefficient of Variation 12.7 % (11.5-14.5) Immature Granulocyte % (Auto) 0.2 % Immature Granulocyte # (Auto) 0.01 K/uL (0.00-0.02) Anion Gap 9.0 mmol/L (3-11) Est Creatinine Clear Calc Drug Dose 133.4 ml/min Estimated GFR () 126.9 Estimated GFR (Non- 109.5 BUN/Creatinine Ratio 23.1 (10-20) Calcium Level 9.2 mg/dl (8.5-10.1) Total Bilirubin 0.3 mg/dl (0.2-1) Aspartate Amino Transf (AST/SGOT) 35 U/L (15-37) Alanine Aminotransferase (ALT/SGPT) 39 U/L (12-78) Alkaline Phosphatase 117 U/L (45-117) Total Protein 7.1 gm/dl (6.4-8.2) Albumin 3.6 gm/dl (3.4-5.0) Globulin 3.5 gm/dl (2.5-4.0) Albumin/Globulin Ratio 1.0 (0.9-2) Thyroid Stimulating Hormone (TSH) 1.610 uIu/ml (0.300-4.500) Laboratory results per my review. Medications Administered Medications (Trade) Dose Ordered Sig/Bert Route Start Time Stop Time Status Last Admin Dose Admin Sodium Chloride 1,000 ml @ 999 mls/hr Q1H1M STAT IV 04/13/17 09:59 04/13/17 10:59 DC 04/13/17 09:59 999 MLS/HR Ketorolac Tromethamine (Toradol Inj) 30 mg NOW STAT IV 04/13/17 09:59 04/13/17 10:02 DC 04/13/17 11:19 30 MG Prochlorperazine Edisylate (Compazine Inj) 10 mg NOW STAT IV 04/13/17 09:59 04/13/17 10:02 DC 04/13/17 11:20 10 MG Procedure Compazine Inj 10 mg IV Toradol Inj 30 mg IV Sodium Chloride 1000 ml @ 999 mls/hr IV. ED Course 0932: Past medical records reviewed. The patient was evaluated in room C7. A complete history and physical exam was performed. An IV lock was initiated and labs were drawn as above. Her nose was swabbed for influenza. 0959: Ordered Compazine Inj 10 mg IV, Toradol Inj 30 mg IV, Sodium Chloride 1000 ml @ 999 mls/hr IV. 1232: Upon reevaluation, the patient's headache is gone, and she is feeling better. I discussed findings and results with her. She verbalized agreement of the treatment plan. She was discharged home. Medical Decision The patient is a 42 year old female who presents to the ED with a headache. Differential diagnosis includes hypertension, migraine, intracranial hemorrhage , influenza, and dehydration. Laboratory Results: No leukocytosis, stable H&H, normal renal function and LFTs, normal TSH, negative influenza. This 42-year-old female patient with a history of migraine who presents to the emergency department with what feels like a different headache and nosebleed. Nose is not currently bleeding. Upon arrival to the emergency department, the patient's blood pressure was slightly elevated but then returned to normal. She had no further epistaxis while here in the emergency department. The patient had relief of her symptoms with the above medications. The patient does not appear to be dehydrated and has no signs of infection. The patient was told to take her Imitrex at home if the migraine returns. Otherwise, the patient can follow-up with the PCP. Medication Reconcilliation Current Medication List: was personally reviewed by me Blood Pressure Screening Patient's blood pressure: Elevated blood pressure Blood pressure disposition: Elevated BP felt to be situational Impression Primary Impression: Headache Additional Impression: Epistaxis Scribe Attestation The scribe's documentation has been prepared under my direction and personally reviewed by me in its entirety. I confirm that the note above accurately reflects all work, treatment, procedures, and medical decision making performed by me. Departure Information Dispostion Home / Self-Care Referrals Sandra Hayes M.D. (PCP) Forms HOME CARE DOCUMENTATION FORM, IMPORTANT VISIT INFORMATION Patient Instructions Headache Pain, My [facility] [employer] Additional Instructions Rest Take immitrex if needed. Do not blow nose for 24 hours Return to the ER if symptoms worsen Problem Qualifiers Primary Impression: Headache Headache type: unspecified Headache chronicity pattern: acute headache Intractability: not intractable Qualified Codes: R51 - Headache
[2017-04-13 11:38] LABS: CREATININE 0.65 mg/dl (0.60-1.20)
[2017-04-13 11:39] LABS: ALBUMIN 3.6 gm/dl (3.4-5.0); CALCIUM 9.2 mg/dl (8.5-10.1); POTASSIUM 3.7 mmol/L (3.5-5.1)
[2017-04-13 11:49] LABS: TOTAL PROTEIN 7.1 gm/dl (6.4-8.2)
[2017-04-13 12:46] VITALS: BP 125/77
--- NOTE | 2017-04-13 13:44 | DIAGNOSTIC IMAGING REPORT ---
TWO VIEW CHEST CLINICAL HISTORY: Asthma exacerbation. FINDINGS: PA and lateral chest radiographs are correlated with chest CT dated 05/02/2008. The cardiomediastinal silhouette is unremarkable. The lungs and pleural spaces are clear. There is no pneumothorax. The bony thorax appears intact. Surgical anchors are noted in the left humeral head. IMPRESSION: No active disease in the chest. Electronically signed by: Sunday Monsivais M.D. 04/13/2017 1:42 PM Dictated Date/Time: 04/13/2017 1:42 PM
== END 2017-04-13 12:47 | disposition home or self-care (01) ==
LOC: C.EDB 08:37 → C.EDC 12:47
DX: R51 Headache (principal); R04.0 Epistaxis; G70.00 Myasthenia gravis without (acute) exacerbation; Z90.710 Acquired absence of both cervix and uterus; J45.909 Unspecified asthma, uncomplicated; Z90.721 Acquired absence of ovaries, unilateral; Z98.51 Tubal ligation status; Z80.9 Family history of malignant neoplasm, unspecified; Z79.899 Other long term (current) drug therapy

== ENCOUNTER 2017-04-16 13:26 | Emergency (ER) | payer OTHER ==
[~2017-04-16] VITALS: Ht 170.2 cm; Wt 92.2 kg
[~2017-04-16 13:26] MED LIST changes: +ALBUAER OR; +CETI10TA84 PO; -CITA10TA8 PO; +CITA20TA9 PO; +KETO0.0216 OP; +MAGN400T6 PO; +MONT1TAB3 PO; +PROM25TA9 PO; +PYRI60TA2 PO; +RIBO1TAB4 PO; +SUMA100T16 PO; -TOPI25TA55 PO
[2017-04-16 13:36] VITALS: Ht 170.2 cm; Wt 92.2 kg
[2017-04-16] MEDS ORDERED: DiphenhydrAMINE HCL 50 MG/ML VIAL IV STA (14:17)
[2017-04-16] MEDS ORDERED: KETOROLAC TROMETHAMINE 30 MG/ML VIAL IV STA (14:17)
[2017-04-16] MEDS ORDERED: PROCHLORPERAZINE 5 MG/ML 2 ML VIAL IV STA (14:17)
[2017-04-16] MEDS ORDERED: SODIUM CHLORIDE 0.9% 1000ML 1,000 ML IV ONE ×2 (14:30→16:15)
[2017-04-16 15:36] LABS: BASO % 0.6 %; BASO ABS # 0.03 K/uL (0-0.2); EOS % 1.9 %; HEMATOCRIT 37.9 % (37-47); HEMOGLOBIN 12.7 g/dL (12.0-16.0); IG# 0.01 K/uL (0.00-0.02); LYMPH % 25.1 %; LYMPH ABS # 1.33 K/uL (1.2-3.4); MEAN CELL VOLUME 91.3 fL (80-100); MEAN CORPUSCULAR HEMOGLOBIN 30.6 pg (25-34); MEAN CORPUSCULAR HGB CONC 33.5 g/dl (32-36); MEAN PLATELET VOLUME 9.4 fL (7.4-10.4); MONO % 7.2 %; MONO ABS # 0.38 K/uL (0.11-0.59); NEUT ABS # 3.45 K/uL (1.4-6.5); PLATELET COUNT 182 K/uL (130-400); RED CELL DISTRIBUTION WIDTH CV 12.6 % (11.5-14.5); RED CELL DISTRIBUTION WIDTH SD 42.3 fL (36.4-46.3)
--- NOTE | 2017-04-16 15:40 | DIAGNOSTIC IMAGING REPORT ---
CT SCAN OF THE BRAIN WITHOUT IV CONTRAST CLINICAL HISTORY: Headache. COMPARISON STUDY: MRI of the brain dated 04/12/2008. TECHNIQUE: Unenhanced axial CT scan of the brain is performed from the vertex to the skull base. A dose lowering technique was utilized adhering to the principles of ALARA. CT DOSE: 638.56 mGycm FINDINGS: Brain parenchyma: The brain parenchyma is normal in appearance. There is no hemorrhage, mass effect, or evidence of acute territorial ischemia by CT criteria. Giles-white matter is preserved. No extra-axial fluid collection is seen. Ventricles, sulci, cisterns: Normal in configuration. Intracranial vasculature: The visualized intracranial vasculature at the skull base is normal in appearance. Calvarium: Unremarkable. Sinuses and mastoids: The visualized paranasal sinuses are clear. The mastoid air cells are well pneumatized. Orbits: The bony orbits are grossly intact. IMPRESSION: No acute intracranial abnormality. Electronically signed by: Sunday Monsivais M.D. 04/16/2017 3:39 PM Dictated Date/Time: 04/16/2017 3:38 PM
[2017-04-16 15:48] LABS: PTT PATIENT 26.5 SECONDS (21.0-31.0)
[2017-04-16 15:59] LABS: ALBUMIN 3.8 gm/dl (3.4-5.0); CALCIUM 9.4 mg/dl (8.5-10.1); CREATININE 0.64 mg/dl (0.60-1.20); POTASSIUM 3.7 mmol/L (3.5-5.1)
[2017-04-16] MEDS ORDERED: MAGNESIUM SULFATE 1GM / D5W 1 GM BAG IV STA (16:04)
[2017-04-16] MEDS ORDERED: SUMATRIPTAN SUCCINATE 6 MG/0.5 ML VIAL SQ STA (16:04)
[2017-04-16 16:10] LABS: TOTAL PROTEIN 7.4 gm/dl (6.4-8.2)
[2017-04-16] MEDS ORDERED: DEXAMETHASONE INJ 10 MG in SYRINGE 0 ML IV ONE (16:15)
[2017-04-16] MEDS ORDERED: DEXAMETHASONE **PF** INJ 10 MG/ML VIAL ONE (16:38)
[2017-04-16 17:48] VITALS: BP 120/67; PULSE 63; TEMP 36.5; O2SAT 97
--- NOTE | 2017-04-16 21:33 | EMERGENCY ROOM VISIT NOTE ---
History First contact with patient: 14:01 Chief Complaint: HEADACHE Stated Complaint: NOSE BLEEDS,SEVERE HEADACHE, R EYE AND NECK PAIN History of Present Illness The patient is a 42 year old female who presents to the Emergency Room with complaints of severe headache for the past several days. She was seen this week in the emergency department for this complaint. She was given IV medication, which initially did improve her discomfort. She states the next day her pain returned, and today she had a nosebleed for about 20 minutes, prompting her presentation to the department. Most of her discomfort is behind the right eye and down the right side neck. She is not having vision changes or hearing changes. She has not had numbness or paresthesias. She admits that she has a chronic history of migraines, but the pain is worse today than normal. She has an appointment in 5 days with her neurologist. The patient does have Imitrex at home, but did not take his medication. This morning she did take ibuprofen, which did help initially. She has not had fever or chills. No abdominal pain. She does complain of intermittent left side chest "twinge " that is very infrequent, but is new. She rates her pain a 10/10. Review of Systems More than 10 systems were reviewed and otherwise negative with the exception of history of present illness. Past Medical/Surgical History Medical Problems: (1) Left tubo-ovarian mass (2) Torsion of left ovary and ovarian pedicle Surgical Problems: (1) H/O: hysterectomy (2) S/P tubal ligation Family History Cancer Social History Smoking Status: Former Smoker Alcohol Use: occasionally Marital Status: Housing Status: lives with family Occupation Status: employed Current/Historical Medications Scheduled Albuterol Sulfate (Proventil Hfa), 2 PUFFS OR Q4 Buspirone HCl (Buspirone HCl), 15 MG PO BID Cetirizine (Zyrtec), 10 MG PO DAILY Citalopram Hydrobromide (Celexa), 20 MG PO DAILY Ibuprofen (Advil), 800 MG PO TID Ketotifen Fumarate (Ophth) (Zaditor 0.025% Oph), 1 DROP OP BID Magnesium Oxide (Mag-Ox), 200 MG PO BID Montelukast Sodium (Singulair), 10 MG PO HS Mycophenolate Mofetil (Mycophenolate Mofetil), 250 MG PO BID Pyridostigmine [place] (Mestinon), 60 MG PO TID Riboflavin (Riboflavin), 400 MG PO DAILY Sumatriptan Succinate (Imitrex Statdose), 1 DOSE SC PRN Sumatriptan Succinate (Imitrex), 100 MG PO PRN Scheduled PRN Promethazine Hcl (Phenergan), 25 MG PO Q4H PRN for Nausea Physical Exam Vital Signs Date Time Temp Pulse Resp B/P (MAP) Pulse Ox O2 Delivery O2 Flow Rate FiO2 04/16/17 17:48 36.5 63 14 120/67 97 04/16/17 16:46 63 14 04/16/17 16:41 70 13 04/16/17 16:36 76 15 04/16/17 16:31 67 15 04/16/17 16:26 66 14 04/16/17 16:21 67 15 04/16/17 16:16 70 17 04/16/17 16:11 68 14 04/16/17 16:06 73 17 04/16/17 16:01 67 17 04/16/17 15:56 66 17 04/16/17 15:51 67 17 04/16/17 15:46 72 19 04/16/17 15:43 Room Air 04/16/17 15:42 120/67 04/16/17 15:42 74 16 120/67 97 Room Air 04/16/17 15:41 75 15 04/16/17 15:26 68 17 04/16/17 15:21 71 16 04/16/17 15:16 78 10 04/16/17 15:11 81 17 04/16/17 15:06 77 15 04/16/17 15:01 77 16 04/16/17 14:56 84 20 04/16/17 14:51 71 14 04/16/17 14:48 64 04/16/17 13:36 36.5 62 20 143/100 94 Room Air Physical Exam VITALS: Vitals are noted on the nurse's note and reviewed by myself. Vital signs stable. GENERAL: Well-developed, well-nourished, white female, who is in no acute distress and resting comfortably in a well lit ER room. Patient is cooperative with the examination. HEAD: Normocephalic atraumatic. EARS: External ear normal. External auditory canals clear, tympanic membranes pearly giles without erythema or effusion bilaterally. EYES: Pupils equal round and reactive to light and accommodation. Conjunctivae without injection, sclerae without icterus. Extraocular movements intact. NOSE: Patent, turbinates without inflammation or discharge. No epistaxis noted. MOUTH: Mucous membranes moist. Tonsils are not enlarged. Pharynx without erythema, blood, or exudate. Uvula midline. Airway patent. NECK: Supple without nuchal rigidity. No lymphadenopathy. No thyromegaly. Cervical spine is nontender. HEART: Regular rate and rhythm without murmurs gallops or rubs. LUNGS: Clear to auscultation bilaterally without wheezes, rales or rhonchi. No retractions or accessory muscle use. ABDOMEN: Positive normal bowel sounds x 4. Soft, nontender, without masses or organomegaly. No guarding or rebound tenderness. MUSCULOSKELETAL: No muscle atrophy, erythema, or edema noted. NEURO: Patient was alert and oriented to person place and time. CN II through XII grossly intact. No focal neurological deficits. Medical Decision & Procedures ER Provider Diagnostic Interpretation: CT SCAN OF THE BRAIN WITHOUT IV CONTRAST CLINICAL HISTORY: Headache. COMPARISON STUDY: MRI of the brain dated 04/12/2008. TECHNIQUE: Unenhanced axial CT scan of the brain is performed from the vertex to the skull base. A dose lowering technique was utilized adhering to the principles of ALARA. CT DOSE: 638.56 mGycm FINDINGS: Brain parenchyma: The brain parenchyma is normal in appearance. There is no hemorrhage, mass effect, or evidence of acute territorial ischemia by CT criteria. Giles-white matter is preserved. No extra-axial fluid collection is seen. Ventricles, sulci, cisterns: Normal in configuration. Intracranial vasculature: The visualized intracranial vasculature at the skull base is normal in appearance. Calvarium: Unremarkable. Sinuses and mastoids: The visualized paranasal sinuses are clear. The mastoid air cells are well pneumatized. Orbits: The bony orbits are grossly intact. IMPRESSION: No acute intracranial abnormality. Laboratory Results 04/16/17 15:26 Red Blood Count 4.15, Mean Corpuscular Volume 91.3, Mean Corpuscular Hemoglobin 30.6, Mean Corpuscular Hemoglobin Concent 33.5, Mean Platelet Volume 9.4, Neutrophils (%) (Auto) 65.0, Lymphocytes (%) (Auto) 25.1, Monocytes (%) (Auto) 7.2, Eosinophils (%) (Auto) 1.9, Basophils (%) (Auto) 0.6, Neutrophils # (Auto) 3.45, Lymphocytes # (Auto) 1.33, Monocytes # (Auto) 0.38, Eosinophils # (Auto) 0.10, Basophils # (Auto) 0.03 04/16/17 15:26 Test 04/16/17 13:26 04/16/17 15:26 04/16/17 17:00 Troponin I < 0.015 ng/ml (0-0.045) White Blood Count 5.30 K/uL (4.8-10.8) Red Blood Count 4.15 M/uL (4.2-5.4) Hemoglobin 12.7 g/dL (12.0-16.0) Hematocrit 37.9 % (37-47) Mean Corpuscular Volume 91.3 fL (80-100) Mean Corpuscular Hemoglobin 30.6 pg (25-34) Mean Corpuscular Hemoglobin Concent 33.5 g/dl (32-36) Platelet Count 182 K/uL (130-400) Mean Platelet Volume 9.4 fL (7.4-10.4) Neutrophils (%) (Auto) 65.0 % Lymphocytes (%) (Auto) 25.1 % Monocytes (%) (Auto) 7.2 % Eosinophils (%) (Auto) 1.9 % Basophils (%) (Auto) 0.6 % Neutrophils # (Auto) 3.45 K/uL (1.4-6.5) Lymphocytes # (Auto) 1.33 K/uL (1.2-3.4) Monocytes # (Auto) 0.38 K/uL (0.11-0.59) Eosinophils # (Auto) 0.10 K/uL (0-0.5) Basophils # (Auto) 0.03 K/uL (0-0.2) RDW Standard Deviation 42.3 fL (36.4-46.3) RDW Coefficient of Variation 12.6 % (11.5-14.5) Immature Granulocyte % (Auto) 0.2 % Immature Granulocyte # (Auto) 0.01 K/uL (0.00-0.02) Prothrombin Time 10.4 SECONDS (9.0-12.0) Prothromb Time International Ratio 1.0 (0.9-1.1) Activated Partial Thromboplast Time 26.5 SECONDS (21.0-31.0) Partial Thromboplastin Ratio 1.0 Anion Gap 7.0 mmol/L (3-11) Est Creatinine Clear Calc Drug Dose 133.5 ml/min Estimated GFR () 127.6 Estimated GFR (Non- 110.1 BUN/Creatinine Ratio 17.3 (10-20) Calcium Level 9.4 mg/dl (8.5-10.1) Magnesium Level 2.2 mg/dl (1.8-2.4) Total Bilirubin 0.4 mg/dl (0.2-1) Aspartate Amino Transf (AST/SGOT) 34 U/L (15-37) Alanine Aminotransferase (ALT/SGPT) 41 U/L (12-78) Alkaline Phosphatase 104 U/L (45-117) Total Protein 7.4 gm/dl (6.4-8.2) Albumin 3.8 gm/dl (3.4-5.0) Globulin 3.6 gm/dl (2.5-4.0) Albumin/Globulin Ratio 1.0 (0.9-2) Thyroid Stimulating Hormone (TSH) 2.100 uIu/ml (0.300-4.500) Urine Color YELLOW Urine Appearance CLEAR (CLEAR) Urine pH 6.0 (4.5-7.5) Urine Specific [place] 1.010 (1.000-1.030) Urine Protein NEG (NEG) Urine Glucose (UA) NEG (NEG) Urine Ketones NEG (NEG) Urine Occult Blood NEG (NEG) Urine Nitrite NEG (NEG) Urine Bilirubin NEG (NEG) Urine Urobilinogen NEG (NEG) Urine Leukocyte Esterase NEG (NEG) Urine Test NEG (NEG) Medications Administered Medications (Trade) Dose Ordered Sig/Bert Route Start Time Stop Time Status Last Admin Dose Admin Diphenhydramine HCl (Benadryl Inj) 50 mg NOW STAT IV 04/16/17 14:17 04/16/17 14:19 DC 04/16/17 14:41 50 MG Prochlorperazine Edisylate (Compazine Inj) 10 mg NOW STAT IV 04/16/17 14:17 04/16/17 14:19 DC 04/16/17 14:41 10 MG Sodium Chloride 1,000 ml @ 999 mls/hr Q1H1M ONCE IV 04/16/17 14:30 04/16/17 15:30 DC 04/16/17 14:43 999 MLS/HR Ketorolac Tromethamine (Toradol Inj) 30 mg NOW STAT IV 04/16/17 14:17 04/16/17 14:19 DC 04/16/17 14:41 30 MG Dexamethasone Sodium Phosphate 10 mg/Syringe 2.5 ml @ 1 mls/min NOW ONCE IV 04/16/17 16:15 04/16/17 16:17 DC 04/16/17 16:41 1 MLS/MIN Magnesium Sulfate (Magnesium Sulfate) 1 gm NOW STAT IV 04/16/17 16:04 04/16/17 16:07 DC 04/16/17 16:40 1 GM Sumatriptan Succinate (Imitrex Sq Inj) 6 mg NOW STAT SQ 04/16/17 16:04 04/16/17 16:07 DC 04/16/17 16:41 6 MG ED Course Physical exam and history were performed. Nursing notes, EMR, and Medication List were personally reviewed. Patient appears to have a history of migraines with a persistent migraine the past several days. She states this is different from her normal migraines. She does not appear toxic on examination, and is without signs of meningitis or encephalitis. IV access was established and labs were obtained. The patient was hydrated and medicated as above. Because of her symptoms I elected to perform a CT scan of the head. The patient's blood work is as above and was reviewed. She does not have a significantly elevated white blood cell count, gross anemia, bandemia, or significant electrolyte imbalance. Transaminases are nondiagnostic. Urine is without evidence of infection. The patient CT scan is as above and does not show obvious intracranial bleed or other abnormality. On reevaluation throughout her stay, she did have improvement of her symptoms. She does have an appointment next week with neurology, which appears reasonable , and she was encouraged to keep this appointment. She has felt stable for discharge home, and will be discharged home in the care of a female rugby union footballer. She was pleased with this plan and rated her discomfort a 2/10 at time of departure. The chart was completed utilizing [employer] Voice Recognition Software. Grammatical errors, random word insertions, pronoun errors, and incomplete sentences are an occasional consequence of this system due to software limitations, ambient noise, and hardware issues. Any formal questions or concerns about the content, text, or information contained within the body of this dictation should be directly addressed to the provider for clarification. . Medical Decision The differential diagnosis includes, but is not limited to: acute intracranial bleed, meningitis, encephalitis, mass or mass effect, sinusitis, infection, tumor, headache, temporal arteritis and carbon monoxide exposure, and migraine. Impression Primary Impression: Migraine Departure Information Referrals Sandra Hayes M.D. (PCP) Patient Instructions My [facility]
== END 2017-04-16 17:49 | disposition home or self-care (01) ==
LOC: C.EDB 13:30 → C.EDA 17:49
DX: G43.909 Migraine, unspecified, not intractable, without status migrainosus (principal); Z90.710 Acquired absence of both cervix and uterus; Z98.51 Tubal ligation status; Z80.9 Family history of malignant neoplasm, unspecified; Z87.891 Personal history of nicotine dependence; Z79.899 Other long term (current) drug therapy

== ENCOUNTER → 2017-04-20 | Outpatient (CLI) | payer OTHER ==
--- NOTE | 2017-04-20 16:25 | DIAGNOSTIC IMAGING REPORT ---
ADDENDUM The initial report is in error. No evidence for deep venous thrombosis. Study is positive for focal superficial thrombophlebitis Electronically signed by: Gordon Emmanuel M.D. 04/20/2017 4:28 PM Dictated Date/Time: 04/20/2017 4:28 PM ORIGINAL REPORT R VENOUS DOPPLER UPR EXT UNIL HISTORY: Pain. Edema. CELLULITIS RT HAND, PAIN/SWELLING COMPARISON STUDY: None. FINDINGS: Superficial thrombophlebitis dorsal aspect of the hand. Thrombus within one of the 2 duplicated brachial veins. All remaining venous structures are unremarkable. IMPRESSION: 1. Focal superficial thrombophlebitis dorsal aspect of the hand. 2. Focal deep venous thrombosis] in one of the 2 brachial veins The above report was generated using voice recognition software. It may contain grammatical, syntax or spelling errors. Electronically signed by: Gordon Emmanuel M.D. 04/20/2017 4:24 PM Dictated Date/Time: 04/20/2017 4:21 PM
== END | disposition home or self-care (01) ==
LOC: C.ULTRBC 15:22
PROVIDERS: ATTEND Internal Medicine
DX: L03.113 Cellulitis of right upper limb (principal); I80.8 Phlebitis and thrombophlebitis of other sites